=== PATIENT | male | born 1960 | race Caucasian/White ===

== ENCOUNTER 2018-04-06 22:53 | Emergency (ER) | payer MEDICAID ==
[~2018-04-06] VITALS: Ht 162.6 cm; Wt 68.0 kg
[2018-04-06 23:00] VITALS: BP 126/67
[2018-04-07 00:23] LABS: BASOPHILS # (AUTO) 0.1 K/uL (0.00-0.22); BASOPHILS % (AUTO) 0.9 % (0.0-2.0); EOSINOPHILS # (AUTO) 0.1 K/uL (0-0.4); EOSINOPHILS % (AUTO) 2.1 % (0.0-4.0); HEMATOCRIT 34.4 % (36-52); HEMOGLOBIN 11.3 g/dL (12.0-18.0); LYMPHOCYTES # (AUTO) 1.7 K/uL (2.0-11.5); LYMPHOCYTES % (AUTO) 25.7 % (20.5-51.1); MEAN CORPUSCULAR HEMOGLOBIN 32 pg (27-31); MEAN CORPUSCULAR HGB CONC 33 g/dL (33-37); MEAN CORPUSCULAR VOLUME 98.1 fL (80-94); MONOCYTES # (AUTO) 0.7 K/uL (0.8-1.0); MONOCYTES % (AUTO) 9.7 % (1.7-9.3); NEUTROPHILS # (AUTO) 4.1 K/uL (1.8-7.7); NEUTROPHILS % (AUTO) 61.6 % (42.2-75.2); PLATELET COUNT (AUTO) 228 K/uL (140-450); RED BLOOD CELL COUNT(AUTO) 3.51 MIL/uL (4.20-6.10); RED CELL DISTRIBUTION WIDTH 13.1 % (11.6-13.7); WHITE BLOOD COUNT (AUTO) 6.7 K/uL (4.8-10.8)
[2018-04-07 00:32] LABS: ANION GAP 10.3 (8-16); CARBON DIOXIDE 27.5 mmol/L (21-32); POTASSIUM 4.8 mmol/L (3.5-5.1)
[2018-04-07 00:33] LABS: PROTHROMBIN TIME 10.4 secs (10.8-13.4)
[2018-04-07 00:37] LABS: ALBUMIN 3.6 g/dL (3.4-5.0); TOTAL BILIRUBIN 0.2 mg/dL (0.0-1.0)
[2018-04-07 02:02] LABS: APPEARANCE,URINE CLEAR (CLEAR); BILIRUBIN,URINE NEGATIVE (NEGATIVE); BLOOD, URINE NEGATIVE (NEGATIVE); COLOR,URINE YELLOW (YELLOW); LEUKOCYTE ESTERASE ,URINE NEGATIVE (NEGATIVE); NITRITE, URINE NEGATIVE (NEGATIVE); PH,URINE 5.5 (5.0-9.0); UGLUCOSE 2+ (NEGATIVE)
[2018-04-07 02:12] LABS: RBC,URINE 0-5 (RARE) /HPF (0-5); WBC,URINE 0-5 (RARE) /HPF (0-5)
[2018-04-07 02:25] VITALS: BP 139/81
== END 2018-04-07 02:25 | disposition home or self-care (01) ==
LOC: MED 22:53
DX: S82.391A Other fracture of lower end of right tibia, initial encounter for closed fracture (principal); G45.9 Transient cerebral ischemic attack, unspecified; E11.9 Type 2 diabetes mellitus without complications; I10 Essential (primary) hypertension; E78.5 Hyperlipidemia, unspecified; W19.XXXA Unspecified fall, initial encounter; Y93.89 Activity, other specified; Y92.89 Other specified places as the place of occurrence of the external cause; Y99.8 Other external cause status
CPT/HCPCS: 36415; 70450; 71045; 73610; 80053; 81001; 84484; 85025; 85610; 85730; 93005; 99285

== ENCOUNTER 2023-12-04 15:27 | Emergency (ER) | payer MEDICAID, OTHER ==
[~2023-12-04] VITALS: Ht 162.6 cm; Wt 73.5 kg
[2023-12-04 15:38] VITALS: BP 127/99; PULSE 81; RESP 18; TEMP 97.5; O2SAT 98
[2023-12-04 16:09] LABS: BASOPHILS # (AUTO) 0.1 K/uL (0.00-0.22); BASOPHILS % (AUTO) 0.8 % (0.0-2.0); EOSINOPHILS # (AUTO) 0.1 K/uL (0-0.4); LYMPHOCYTES # (AUTO) 2.9 K/uL (2.0-11.5); MEAN CORPUSCULAR HEMOGLOBIN 32 pg (27-31); MEAN CORPUSCULAR HGB CONC 34 g/dL (33-37); MEAN CORPUSCULAR VOLUME 95.1 fL (80-94); MONOCYTES # (AUTO) 0.8 K/uL (0.8-1.0); MONOCYTES % (AUTO) 6.8 % (1.7-9.3); NEUTROPHILS # (AUTO) 7.7 K/uL (1.8-7.7); NEUTROPHILS % (AUTO) 66.4 % (42.2-75.2); PLATELET COUNT (AUTO) 239 K/uL (140-450); RED BLOOD CELL COUNT(AUTO) 4.31 MIL/uL (4.20-6.10); RED CELL DISTRIBUTION WIDTH 13.5 % (11.6-13.7); WHITE BLOOD COUNT (AUTO) 11.6 K/uL (4.8-10.8)
[2023-12-04 16:31] LABS: ANION GAP 9.2 (8-16); CALCIUM 9.2 mg/dL (8.5-10.1); CARBON DIOXIDE 32.9 mmol/L (21-32); CREATININE 1.1 mg/dL (0.6-1.3); POTASSIUM 4.1 mmol/L (3.5-5.1)
[2023-12-04] MEDS: ONDANSETRON 4 MG ODT PO ONE (17:04)
[2023-12-04] MEDS: MECLIZINE 25 MG TAB PO ONE (17:04)
[2023-12-04] MEDS ORDERED: MECL-303 PO (19:05)
[2023-12-04] MEDS ORDERED: ONDA-188 PO (19:05)
[2023-12-04 19:17] VITALS: BP 122/82; PULSE 81; RESP 18; TEMP 98; O2SAT 99
== END 2023-12-04 19:17 | disposition home or self-care (01) ==
LOC: MED 15:27
DX: H81.11 Benign paroxysmal vertigo, right ear (principal); E11.649 Type 2 diabetes mellitus with hypoglycemia without coma; I10 Essential (primary) hypertension; Z79.4 Long term (current) use of insulin; Z79.899 Other long term (current) drug therapy
CPT/HCPCS: 36415; 71045; 80048; 82948; 84484; 85025; 93005; 99285; J8597; Q0162